=== PATIENT | male | born 1950 | race Caucasian/White ===

== ENCOUNTER 2018-03-03 12:06 | Inpatient (IN) | payer MEDICARE ==
--- NOTE | 2018-03-03 13:53 | C.PDOC ---
History Of Present Illness 67 y/o M c PMHx metastatic liver cancer on hospice care BIBEMS with scrotal edema x 1 week. Patient states the edema is causing discomfort due to the distention but denies any overt pain. Denies fever, dysuria, trauma, dyspnea. Patient states he is prescribed pain medication but has not taken any as he does not feel his level of pain warrants the medication. He is on lactulose and furosemide. Time Seen by Provider: 03/03/18 12:27 Chief Complaint (Nursing): Male Genitourinary Past Medical History Vital Signs: Last Vital Signs Temp 97.6 F 03/03/18 12:14 Pulse 86 03/03/18 12:14 Resp 16 03/03/18 12:14 BP 105/72 03/03/18 12:14 Pulse Ox 97 03/03/18 12:14 - Medical History PMH: Hepatitis (C, in remission?), HTN Family History: States: Unknown Family Hx - Social History Hx Tobacco Use: No Hx Alcohol Use: Yes Hx Substance Use: No - Immunization History Hx Tetanus Toxoid Vaccination: Yes Hx Influenza Vaccination: Yes Hx Pneumococcal Vaccination: Yes Review Of Systems Except As Marked, All Systems Reviewed And Found Negative. Constitutional: Negative for: Fever Cardiovascular: Negative for: Chest Pain Physical Exam - Physical Exam Additional Physical Exam Comments: Gen: Elderly, thin male Head: NC Eyes: PERRL ENT: MMM Neck: Supple Chest: No tenderness CV: Reg rate Lungs: No accessory muscle use Abd: Soft, NT : Scrotal edema without tenderness Skin: No rash Neuro: Alert Extremities: No extremity edema ED Course And Treatment - Laboratory Results Result Diagrams: 03/03/18 14:37 03/03/18 14:37 O2 Sat by Pulse Oximetry: 97 Medical Decision Making Medical Decision Making: US OTHER FINDINGS: Bilateral scrotal wall thickening. 0.3 x 3.3 x 0.3 cm right scrotal cyst. IMPRESSION: Bilateral small hydroceles. Bilateral scrotal wall thickening. 0.3 cm right scrotal cyst. Patient with inability to sit or walk about due to significant scrotal edema which is likely 3rd space fluid from metastatic liver cancer. Hospice care has informed patient that they will be unable to treat this scrotal edema. Dr. Nunn accepts patient to medical service for further treatment of scrotal edema for patient's quality of life. Disposition Discussed With : Jah Nunn Doctor Will See Patient In The: Hospital - Disposition Disposition: HOSPITALIZED Disposition Time: 16:09 Condition: FAIR - Clinical Impression Clinical Impression: Scrotal edema
[2018-03-03 14:47] LABS: BASO # 0.1 K/uL (0.0-0.2); BASO % 0.5 % (0.0-2.0); EOS # 0.1 K/uL (0.0-0.7); EOS % 1.1 % (0.0-4.0); LYMPH # 0.5 K/uL (1.0-4.3); LYMPH % 4.8 % (20.0-40.0); MEAN CELL VOLUME 100.4 fL (80.0-94.0); MEAN CORPUSCULAR HEMOGLOBIN 33.4 pg (27.0-31.0); MEAN CORPUSCULAR HGB CONC 33.3 g/dL (33.0-37.0); MONO # 1.4 K/uL (0.0-0.8); MONO % 13.1 % (0.0-10.0); NEUT # 8.6 K/uL (1.8-7.0); NEUT % 80.5 % (50.0-75.0); NRBC % 0.1 % (0.0-2.0); RBC 4.01 Mil/uL (4.40-5.90)
[2018-03-03 14:49] LABS: HEMOGLOBIN 13.4 g/dL (12.0-18.0); PLATELET COUNT 82 K/uL (130-400); WHITE BLOOD COUNT 10.7 K/uL (4.8-10.8)
[2018-03-03 15:22] LABS: ALB/GLOB RATIO 0.8 (1.0-2.1); ALBUMIN 2.9 g/dL (3.5-5.0)
[2018-03-03 15:26] LABS: LYMPHOCYTE 4 % (20-40); MONOCYTE 9 % (0-10); NEUTROPHIL 87 % (50-75); PLATELET ESTIMATE DECREASED (NORMAL); TOTAL CELLS COUNTED 100
[2018-03-03 15:27] LABS: ANISOCYTOSIS SLIGHT
[2018-03-03 15:28] LABS: BURR CELLS SLIGHT
--- NOTE | 2018-03-03 16:12 | US ---
Date of service: 03/03/2018 HISTORY: swollen testicles TECHNIQUE: Realtime sonography through the scrotum with color and doppler flow. COMPARISON: None Available. FINDINGS: RIGHT TESTICLE: Measures 3.2 x 1.7 x 2.1 cm. Homogeneous echotexture. Blood flow is demonstrated. RIGHT EPIDIDYMIS: Unremarkable. LEFT TESTICLE: Measures 2.9 x 1.5 x 2.1 cm. Homogeneous echotexture. Blood flow is demonstrated. LEFT EPIDIDYMIS: Unremarkable. HYDROCELE: Small bilateral hydroceles. VARICOCELE: None. OTHER FINDINGS: Bilateral scrotal wall thickening. 0.3 x 3.3 x 0.3 cm right scrotal cyst. IMPRESSION: Bilateral small hydroceles. Bilateral scrotal wall thickening. 0.3 cm right scrotal cyst.
[2018-03-03 19:09] LABS: URINE BACTERIA RARE (<OCC); URINE BILIRUBIN NEGATIVE (NEGATIVE); URINE BLOOD NEGATIVE (NEGATIVE); URINE CLARITY Clear (Clear); URINE COLOR Yellow (YELLOW); URINE GLUCOSE (UA) NORMAL (Normal); URINE LEUKOCYTE ESTERASE NEG Leu/uL (Negative); URINE PROTEIN NEGATIVE (NEGATIVE); URINE UROBILINOGEN NORMAL mg/dL (0.2-1.0)
--- NOTE | 2018-03-03 19:09 | CP.PCM.HP ---
History of Present Illness - History of Present Illness History of Present Illness: 67 years or male with metastatic liver cancer admitted with increasing scrotal swelling pain discomfort. Patient is under hospice care and patient was informed by the hospice care nurse that they would not be able to treat his scrotal problem. Patient has severe pain unable to sit walk or do any regular activities and has come to the hospital for focus treatment. His blood work revealed that patient is in renal failure with hyperkalemia. Patient has a history of hypertension. Patient has a catheter in the abdomen to drain ascites fluid. Present on Admission - Present on Admission Any Indicators Present on Admission: No Review of Systems - Constitutional Constitutional: Fatigue. absent: As Per HPI, Anorexia, Chills, Daytime Sleepiness, Excessive Sweating, Fever, Frequent Falls, Headache, Increased Appetite, Lethargy, Malaise, Night Sweats, Snoring, Sleep Apnea, Weight Gain, Weight Loss, Weakness, Other - EENT Eyes: absent: As Per HPI, Blind Spots, Blurred Vision, Change in Vision, Decreased Night Vision, Diplopia, Discharge, Dry Eye, Exophthalmos, Floaters, Irritation, Itchy Eyes, Loss of Peripheral Vision, Pain, Photophobia, Requires Corrective Lenses, Sees Flashes, Spots in Vision, Tunnel Vision, Other Visual Disturbances, Loss of Vision, Other Ears: absent: As Per HPI, Decreased Hearing, Ear Discharge, Ear Pain, Tinnitus, Abnormal Hearing, Disequilibrium, Dizziness, Other Nose/Mouth/Throat: absent: As Per HPI, Epistaxis, Nasal Congestion, Nasal Discharge, Nasal Obstruction, Nasal Trauma, Nose Pain, Post Nasal Drip, Sinus Pain, Sinus Pressure, Bleeding Gums, Change in Voice, Dental Pain, Dry Mouth, Dysphagia, Halitosis, Hoarsness, Lip Swelling, Mouth Lesions, Mouth Pain, O dynophagia, Sore Throat, Throat Swelling, Tongue Swelling, Facial Pain, Neck Pain, Neck Mass, Other - Cardiovascular Cardiovascular: absent: As Per HPI, Acrocyanosis, Chest Pain, Chest Pain at Rest, Chest Pain with Activity, Claudication, Diaphoresis, Dyspnea, Dyspnea on Exertion, Edema, Irregular Heart Rhythm, Pain Radiating to Arm/Neck/Jaw, Leg Edema, Leg Ulcers, Lightheadedness, Orthopnea, Palpitations, Paroxysmal Nocturnal Dyspnea, Pedal Edema, Radiating Pain, Rapid Heart Rate, Slow Heart Rate, Syncope, Other - Respiratory Respiratory: Dyspnea. absent: As Per HPI, Cough, Hemoptysis, Dyspnea on Exertion, Wheezing, Snoring, Stridor, Pain on Inspiration, Chest Congestion, Excessive Mucous Production, Change in Mucous Color, Pain with Coughing, Other - Gastrointestinal Gastrointestinal: Abdominal Pain. absent: As Per HPI, Belching, Bloating, Change in Bowel Habits, Change in Stool Character, Coffee Ground Emesis, Constipation, Cramping, Diarrhea, Dyspepsia, Dysphagia, Early Satiety, Excessive Flatus, Fecal Incontinence, Heartburn, Hematemesis, Hematochezia, Loose Stools, Melena, Nausea, Odynophagia, Temesmus, Vomiting, Other - Genitourinary Genitourinary: absent: As Per HPI, Change in Urinary Stream, Difficulty Urinating, Dysuria, Flank Pain, Hematuria, Pyuria, Nocturia, Urinary Incontinence, Urinary Frequency, Urinary Hesitance, Urinary Urgency, Voiding Freq/Small Amts, Freq UTI, Hx Renal/Bladder Calculi, Hx /Renal Surgery, Bladder Distension, Other - Reproductive: Male Reproductive:Male: Other (SCROTAL SWELLING) - Musculoskeletal Musculoskeletal: Muscle Weakness. absent: As Per HPI, Abnormal Gait, Arthralgias, Atrophy, Back Pain, Deformity, Joint Swelling, Limited Range of Motion, Loss of Height, Muscle Cramps, Myalgias, Neck Pain, Numbness, Radiating Pain into Limb, Stiffness, Tingling, Other Past Patient History - Infectious Disease Hx of Infectious Diseases: None - Past Social History Smoking Status: Never Smoked - CARDIAC Hx Hypertension: Yes - HEMATOLOGICAL/ONCOLOGICAL Hx Cancer: Yes (Liver CA with METS TO LUNGS AND KIDNEY- HOSPICE PATIENT) Other/Comment: PT REVOKED HOSPICE TODAY WITH ED VISIT - PSYCHIATRIC Hx Substance Use: No - SURGICAL HISTORY Hx Surgeries: Yes Hx Musculoskeletal Surgery: Yes (L shoulder rotator cuff) Meds Allergies/Adverse Reactions: Allergies Allergy/AdvReac Type Severity Reaction Status Date / Time No Known Allergies Allergy Verified 05/07/15 12:47 Physical Exam - Constitutional Appears: Chronically Ill - Head Exam Head Exam: ATRAUMATIC, NORMAL INSPECTION, NORMOCEPHALIC - Eye Exam Eye Exam: EOMI, Normal appearance, PERRL - ENT Exam ENT Exam: Mucous Membranes Moist, Normal Exam - Neck Exam Neck exam: Positive for: Normal Inspection - Respiratory Exam Respiratory Exam: Clear to Auscultation Bilateral, NORMAL BREATHING PATTERN - Cardiovascular Exam Cardiovascular Exam: REGULAR RHYTHM - GI/Abdominal Exam GI & Abdominal Exam: Distended, Tenderness - Rectal Exam Rectal Exam: Deferred - Exam Exam: Scrotal Swelling, Testicular Tenderness - Extremities Exam Extremities exam: Positive for: normal inspection - Neurological Exam Neurological exam: Abnormal Gait, CN II-XII Intact, Oriented x3 Results - Vital Signs Recent Vital Signs: Last Vital Signs Temp 97.9 F 03/03/18 18:33 Pulse 86 03/03/18 17:49 Resp 24 03/03/18 17:49 BP 103/63 03/03/18 17:49 Pulse Ox 97 03/03/18 18:22 - Labs Result Diagrams: 03/03/18 14:37 03/03/18 14:37 Labs: Laboratory Results - last 24 hr 03/03/18 03/03/18 14:37 14:37 WBC 10.7 D RBC 4.01 L Hgb 13.4 D Hct 40.3 MCV 100.4 H MCH 33.4 H MCHC 33.3 RDW 17.0 H Plt Count 82 L D MPV 9.0 Neut % (Auto) 80.5 H Lymph % (Auto) 4.8 L [place] % (Auto) 13.1 H Eos % (Auto) 1.1 Baso % (Auto) 0.5 Neut # (Auto) 8.6 H Lymph # (Auto) 0.5 L [place] # (Auto) 1.4 H Eos # (Auto) 0.1 Baso # (Auto) 0.1 Neutrophils % (Manual) 87 H Lymphocytes % (Manual) 4 L Monocytes % (Manual) 9 Platelet Estimate Decreased L Anisocytosis (manual) Slight Macrocytosis (manual) Slight Mari[place] Cells Slight Sodium 128 L Potassium 5.6 H Chloride 100 Carbon Dioxide 14 L Anion Gap 20 BUN 123 H* D Creatinine 5.1 H Est GFR ( Amer) 14 Est GFR (Non-Af Amer) 11 Random Glucose 125 H Calcium 9.0 Total Bilirubin 4.6 H AST 306 H ALT 259 H D Alkaline Phosphatase 205 H Total Protein 6.6 Albumin 2.9 L Globulin 3.8 Albumin/Globulin Ratio 0.8 L Assessment & Plan (1) Liver cancer, primary, with metastasis from liver to other site Status: Chronic (2) Renal failure (ARF), acute on chronic Status: Acute (3) Hyperkalemia Status: Acute (4) Scrotal edema Status: Acute
[2018-03-03] MEDS ORDERED: Sod Polystyrene Sulf 15 gm/60 ml Susp PO ONE (19:30)
[2018-03-04 07:10] LABS: ALB/GLOB RATIO 0.8 (1.0-2.1); ALBUMIN 2.9 g/dL (3.5-5.0); BILIRUBIN,DIRECT 2.8 mg/dL (0.0-0.4)
[2018-03-04 08:18] LABS: BASO # 0.1 K/uL (0.0-0.2); BASO % 0.6 % (0.0-2.0); EOS # 0.2 K/uL (0.0-0.7); EOS % 2.3 % (0.0-4.0); HEMOGLOBIN 12.3 g/dL (12.0-18.0); LYMPH # 0.7 K/uL (1.0-4.3); LYMPH % 6.6 % (20.0-40.0); MEAN CELL VOLUME 99.5 fL (80.0-94.0); MEAN CORPUSCULAR HEMOGLOBIN 34.3 pg (27.0-31.0); MEAN CORPUSCULAR HGB CONC 34.5 g/dL (33.0-37.0); MEAN PLATELET VOLUME 8.8 fL (7.2-11.7); MONO # 1.4 K/uL (0.0-0.8); MONO % 13.5 % (0.0-10.0); NEUT # 8.2 K/uL (1.8-7.0); PLATELET COUNT 83 K/uL (130-400); RBC 3.58 Mil/uL (4.40-5.90); WHITE BLOOD COUNT 10.7 K/uL (4.8-10.8)
[2018-03-04 08:47] LABS: ANISOCYTOSIS SLIGHT; EOSINOPHIL 4 % (0-4); LYMPHOCYTE 2 % (20-40); MONOCYTE 11 % (0-10); NEUTROPHIL 83 % (50-75); PLATELET ESTIMATE DECREASED (NORMAL); TOTAL CELLS COUNTED 100
[2018-03-04 08:48] LABS: BURR CELLS SLIGHT
[2018-03-04 08:49] LABS: POLYCHROMIC SLIGHT
[2018-03-04] MEDS ORDERED: Sodium Bicarbonate (8.4%) 50 Meq Syringe IVP ONE (09:15)
[2018-03-04 09:47] LABS: ALB/GLOB RATIO 0.8 (1.0-2.1); ALBUMIN 2.5 g/dL (3.5-5.0); CALCIUM 8.7 mg/dl (8.6-10.4)
[2018-03-04] MEDS: Dextrose 5%/0.9% NS 1,000 ML IV SCH ×2 (10:59→21:16)
[2018-03-04] MEDS ORDERED: Sodium Bicarbonate (8.4%) 50 Meq Syringe ONE ×2 (11:30→11:33)
[2018-03-04] MEDS: Oxycodone/Acetaminophen 5/325 mg Tab PO PRN (12:17)
--- NOTE | 2018-03-04 14:19 | CP.PCM.PN ---
Subjective - Date & Time of Evaluation Date of Evaluation: 03/04/18 Time of Evaluation: 14:16 - Subjective Subjective: CHIEF COMPLAINTS TODAY : Patient has pain all over the system. Still has a scrotal swelling Patient in renal failure not much improvement since yesterday ROS. HEENT : N. Resp : No cough, wheezing ,pleuritic CP ,or hemoptysis Cardio : No anginal CP, PND, orthopnea, palpitation GI : No n/v ,diarrhea or GI bleeding . 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 Musculoskel : No joint swelling , Derm : No rash Psych : Normal affect. Ext : No swelling ,calf pain PE. Pt. is alert awake in no distress. V.S As noted in the chart Head ,ear nose,throat and eyes : Normal. Neck : Supple with normal carotids. Lungs: Clear air entry. Heart : S1 & S2 normal with S4. No murmur. Abd : Soft non tender with normal bowel sounds. Drainage catheter. Scrotal swelling Neuro : Moves all ext. with no localized deficit. Ext : No edema with intact pulses.Non tender calves Derm : No rashes or decubitus ulcer. LABS/RADIOLOGY: ASSESSMENT/PLAN : Continue pain management and fluids. Objective - Vital Signs/Intake and Output Vital Signs (last 24 hours): Temp Pulse Resp BP Pulse Ox 97.5 F L 85 20 104/69 98 03/04/18 07:58 03/04/18 07:58 03/04/18 07:58 03/04/18 07:58 03/04/18 08:59 - Medications Medications: Current Medications Heparin Sodium (Porcine) (Heparin) 5,000 units SC Q12 [facility] Last Admin: 03/03/18 22:28 Dose: 5,000 units Dextrose/Sodium Chloride (Dextrose 5%/0.9% Ns 1000 Ml) 1,000 mls @ 100 mls/hr IV .Q10H MINNIE Stop: 03/05/18 10:01 Last Admin: 03/04/18 10:59 Dose: 100 mls/hr Oxycodone/Acetaminophen (Percocet 5/325 Mg Tab) 1 tab PO Q6H PRN PRN Reason: Pain, moderate (4-7) Stop: 03/06/18 20:12 Last Admin: 03/04/18 12:17 Dose: 1 tab - Labs Labs: 03/04/18 08:13 12/05/18 08:13 Assessment and Plan (1) Liver cancer, primary, with metastasis from liver to other site Status: Chronic (2) Renal failure (ARF), acute on chronic Status: Acute (3) Hyperkalemia Status: Acute (4) Scrotal edema Status: Acute
--- NOTE | 2018-03-04 16:07 | CP.PCM.CON ---
History of Present Illness - History of Present Illness History of Present Illness: Nephrology Consultation Note: Assessment: critical Acute Kidney Injury (N17.9) ? pre-renal, hepato-renal Hyperkalemia HAGMA, hyponatremia thrombocytopenia metastatic liver CA, on hospice, ascites Plan pt with end stage cancer and on hospice hence he is not a candidate for renal replacement therapy Maintain hemodynamics stable. Avoid hypotension. Patient not on ACEI/ARB due to recent DOMO Monitor Input/Output, daily weights and renal function with basic metabolic panel will start IVF. straight cath once s/p kayexylate better. ordered for IV bicarb palliative care follow up Check urine sodium and Cr Dose meds/antibiotics for reduced GFR. Avoid fleets enema/magnesium based laxatives. Avoid nephrotoxins/NSAIDs/ iodinated contrast (unless needed emergently) Glycemic control Further work up/management as per primary team Thanks for allowing me to participate in care of your patient. Will follow patient with you. Please call if any Qs. Dr Lloyd Valadez Office: [phone] Chief Complaint; scrotal swelling Reason for consult: Acute Kidney Injury HPI: Pt is a 67 M with hx of metastatic liver CA, on hospice, ascites presented with complaints of scrotal swelling. renal consult for DOMO. pt reports decreased appetite at home and feels recently 2 bottle for fluid were removed from his a bdomen which made him worse. Denies OTC/herbal meds or NSAIDs No recent iodinated contrast exposure. Noted obvious episodes of low BP. ROS: Cardiovascular: No chest pain. Pulmonary: No shortness of breath Gastrointestinal: denies abdominal pain No nausea. No vomiting. c/p distension Genitourinary: No pain while urinating. Denies blood in urine. All other negative except as mentioned in HPI Physical Examination: General Appearance: in no acute respiratory distress, co-operative . cachexic, ill appearing Vitals reviewed and noted as below Head; Atraumatic, normocephalic ENT: no ulcers no thrush. Tongue is midline. Oropharynx: no rash or ulcers. EYES: Pupils are equal, round and reactive to light accommodation. Eye muscles and extraocular movement intact. Sclera is icteric. Neck; supple no lymphadenopathy, no thyromegaly or bruit Lungs: Normal respiratory rate/effort. Breath sounds bilateral equal and clear anteriorly Heart: Normal rate. s1s2 normal. No rub or gallop. Extremities: no edema. No varicose veins Neurological: Patient is alert, awake and oriented to person, place and time. No focal deficit. Strength bilateral appropriate and equal Skin: Warm and dry. Normal turgor. No rash. Palpitation: Normal elasticity for age Abdomen: Abdomen is soft. Bowel sounds +. There is no abdominal tenderness, no guarding/rigidity no organomegaly. grossly distended with ascites. RLQ catheter + Psych: normal insight and normal affect/mood MSK: no joint tenderness or swelling. Digits and nails normal, no deformity : kidney or bladder not palpable but limited exam Labs/imaging reviewed. Past medical history, past surgical history, family history, social history, allergy reviewed and noted as below Family hx: no hx of CKD. Rest non-contributory Past Patient History - Infectious Disease Hx of Infectious Diseases: None - Past Social History Smoking Status: Never Smoked - CARDIAC Hx Hypertension: Yes - HEMATOLOGICAL/ONCOLOGICAL Hx Cancer: Yes (Liver CA with METS TO LUNGS AND KIDNEY- HOSPICE PATIENT) Other/Comment: PT REVOKED HOSPICE TODAY WITH ED VISIT - PSYCHIATRIC Hx Substance Use: No - SURGICAL HISTORY Hx Surgeries: Yes Hx Musculoskeletal Surgery: Yes (L shoulder rotator cuff) Meds Allergies/Adverse Reactions: Allergies Allergy/AdvReac Type Severity Reaction Status Date / Time No Known Allergies Allergy Verified 05/07/15 12:47 - Medications Medications: Current Medications Dextrose/Sodium Chloride (Dextrose 5%/0.9% Ns 1000 Ml) 1,000 mls @ 100 mls/hr IV .Q10H MINNIE Stop: 03/05/18 10:01 Last Admin: 03/04/18 10:59 Dose: 100 mls/hr Oxycodone/Acetaminophen (Percocet 5/325 Mg Tab) 1 tab PO Q6H PRN PRN Reason: Pain, moderate (4-7) Stop: 03/06/18 20:12 Last Admin: 03/04/18 12:17 Dose: 1 tab Results - Vital Signs Recent Vital Signs: Last Vital Signs Temp 97.5 F L 03/04/18 07:58 Pulse 85 03/04/18 07:58 Resp 20 03/04/18 07:58 BP 104/69 03/04/18 07:58 Pulse Ox 98 03/04/18 08:59 - Labs Result Diagrams: 03/04/18 08:13 03/04/18 08:13 Labs: Laboratory Results - last 24 hr 03/03/18 03/04/18 03/04/18 18:39 06:41 08:13 WBC 10.7 RBC 3.58 L Hgb 12.3 Hct 35.6 MCV 99.5 H MCH 34.3 H MCHC 34.5 RDW 17.0 H Plt Count 83 L MPV 8.8 Neut % (Auto) 77.0 H Lymph % (Auto) 6.6 L [place] % (Auto) 13.5 H Eos % (Auto) 2.3 Baso % (Auto) 0.6 Neut # (Auto) 8.2 H Lymph # (Auto) 0.7 L [place] # (Auto) 1.4 H Eos # (Auto) 0.2 Baso # (Auto) 0.1 Neutrophils % (Manual) 83 H Lymphocytes % (Manual) 2 L Monocytes % (Manual) 11 H Eosinophils % (Manual) 4 Platelet Estimate Decreased L Polychromasia Slight Anisocytosis (manual) Slight Marii Cells Slight Sodium 128 L Potassium 6.1 H Chloride 102 Carbon Dioxide 12 L Anion Gap 20 BUN 129 H* Creatinine 4.3 H Est GFR ( Amer) 17 Est GFR (Non-Af Amer) 14 Random Glucose 104 Calcium 8.0 L Total Bilirubin 4.6 H Direct Bilirubin 2.8 H AST 220 H D ALT 186 H D Alkaline Phosphatase 167 H Total Protein 6.7 Albumin 2.9 L Globulin 3.8 Albumin/Globulin Ratio 0.8 L Urine Color Yellow Urine Clarity Clear Urine pH 5.0 Ur Specific [place] 1.013 Urine Protein Negative Urine Glucose (UA) Normal Urine Ketones Negative Urine Blood Negative Urine Nitrate Negative Urine Bilirubin Negative Urine Urobilinogen Normal Ur Leukocyte Esterase Neg Urine WBC (Auto) < 1 Urine RBC (Auto) < 1 Urine Bacteria Rare 03/04/18 08:13 WBC RBC Hgb Hct MCV MCH MCHC RDW Plt Count MPV Neut % (Auto) Lymph % (Auto) [place] % (Auto) Eos % (Auto) Baso % (Auto) Neut # (Auto) Lymph # (Auto) [place] # (Auto) Eos # (Auto) Baso # (Auto) Neutrophils % (Manual) Lymphocytes % (Manual) Monocytes % (Manual) Eosinophils % (Manual) Platelet Estimate Polychromasia Anisocytosis (manual) [place] Cells Sodium 129 L Potassium 4.9 Chloride 103 Carbon Dioxide 14 L Anion Gap 17 BUN 126 H* Creatinine 4.6 H Est GFR ( Amer) 15 Est GFR (Non-Af Amer) 13 Random Glucose 104 Calcium 8.7 Total Bilirubin 3.9 H Direct Bilirubin AST 194 H ALT 201 H Alkaline Phosphatase 198 H Total Protein 5.9 L Albumin 2.5 L Globulin 3.3 Albumin/Globulin Ratio 0.8 L Urine Color Urine Clarity Urine pH Ur Specific [place] Urine Protein Urine Glucose (UA) Urine Ketones Urine Blood Urine Nitrate Urine Bilirubin Urine Urobilinogen Ur Leukocyte Esterase Urine WBC (Auto) Urine RBC (Auto) Urine Bacteria
[2018-03-05] MEDS: Dextrose 5%/0.9% NS 1,000 ML IV SCH (07:58)
[2018-03-05 09:16] LABS: BASO # 0.1 K/uL (0.0-0.2); BASO % 0.8 % (0.0-2.0); EOS # 0.3 K/uL (0.0-0.7); EOS % 3.6 % (0.0-4.0); HEMOGLOBIN 12.3 g/dL (12.0-18.0); LYMPH # 0.6 K/uL (1.0-4.3); LYMPH % 7.4 % (20.0-40.0); MEAN CELL VOLUME 98.7 fL (80.0-94.0); MEAN CORPUSCULAR HEMOGLOBIN 33.7 pg (27.0-31.0); MEAN CORPUSCULAR HGB CONC 34.2 g/dL (33.0-37.0); MONO # 1.1 K/uL (0.0-0.8); NEUT # 6.7 K/uL (1.8-7.0); NEUT % 76.2 % (50.0-75.0); NRBC % 0.1 % (0.0-2.0); PLATELET COUNT 82 K/uL (130-400); RBC 3.65 Mil/uL (4.40-5.90); RED CELL DISTRIBUTION WIDTH 17.2 % (11.5-14.5); WHITE BLOOD COUNT 8.8 K/uL (4.8-10.8)
[2018-03-05] MEDS ORDERED: Pneumococcal 23-Valent Vaccine IM ONE (10:00)
[2018-03-05 11:07] LABS: ALB/GLOB RATIO 0.8 (1.0-2.1); ALBUMIN 2.5 g/dL (3.5-5.0); CALCIUM 8.5 mg/dl (8.6-10.4)
[2018-03-05 11:14] LABS: ANISOCYTOSIS SLIGHT; EOSINOPHIL 2 % (0-4); LYMPHOCYTE 2 % (20-40); MONOCYTE 8 % (0-10); NEUTROPHIL 88 % (50-75); PLATELET ESTIMATE DECREASED (NORMAL); TOTAL CELLS COUNTED 100
[2018-03-05 11:15] LABS: BURR CELLS SLIGHT
[2018-03-05] MEDS: Albumin Human 25% (12.5 gm/50 ml) IV SCH ×2 (12:48→17:23)
--- NOTE | 2018-03-05 13:53 | CP.PCM.PN ---
Subjective - Date & Time of Evaluation Date of Evaluation: 03/05/18 Time of Evaluation: 13:52 - Subjective Subjective: CHIEF COMPLAINTS TODAY : Patient has pain all over the system. Still has a mild scrotal swelling Patient in renal failure not much improvement since yesterday ROS. HEENT : N. Resp : No cough, wheezing ,pleuritic CP ,or hemoptysis Cardio : No anginal CP, PND, orthopnea, palpitation GI : No n/v ,diarrhea or GI bleeding . 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 Musculoskel : No joint swelling , Derm : No rash Psych : Normal affect. Ext : No swelling ,calf pain PE. Pt. is alert awake in no distress. V.S As noted in the chart Head ,ear nose,throat and eyes : Normal. Neck : Supple with normal carotids. Lungs: Clear air entry. Heart : S1 & S2 normal with S4. No murmur. Abd : Soft non tender with normal bowel sounds. Drainage catheter. Scrotal swelling Neuro : Moves all ext. with no localized deficit. Ext : No edema with intact pulses.Non tender calves Derm : No rashes or decubitus ulcer. LABS/RADIOLOGY: ASSESSMENT/PLAN : Continue pain management and fluids. Objective - Vital Signs/Intake and Output Vital Signs (last 24 hours): Temp Pulse Resp BP Pulse Ox 98.8 F 86 20 103/64 98 03/05/18 08:11 03/05/18 08:11 03/05/18 08:11 03/05/18 08:11 03/05/18 08:35 Intake and Output: 03/05/18 03/05/18 11:59 23:59 Output Total 300 Balance -300 - Medications Medications: Current Medications Albumin Human (Albumin Human 25% (12.5 Gm/50 Ml)) 25 gm IV Q6 MINNIE Stop: 03/06/18 06:01 Last Admin: 03/05/18 12:48 Dose: 25 gm Midodrine (Proamatine) 10 mg PO TID [facility] Octreotide Acetate (Sandostatin) 200 mcg SC Q8 [facility] Oxycodone/Acetaminophen (Percocet 5/325 Mg Tab) 1 tab PO Q6H PRN PRN Reason: Pain, moderate (4-7) Stop: 03/06/18 20:12 Last Admin: 03/04/18 12:17 Dose: 1 tab - Labs Labs: 03/05/18 09:05 03/05/18 09:05 Assessment and Plan (1) Liver cancer, primary, with metastasis from liver to other site Status: Chronic (2) Renal failure (ARF), acute on chronic Status: Acute (3) Hyperkalemia Status: Acute (4) Scrotal edema Status: Acute
--- NOTE | 2018-03-05 15:01 | CP.PCM.PN ---
Subjective - Date & Time of Evaluation Date of Evaluation: 03/05/18 Time of Evaluation: 15:00 - Subjective Subjective: Nephrology Consultation Note: Assessment: critical Acute Kidney Injury (N17.9) ? pre-renal, hepato-renal Hyperkalemia HAGMA, hyponatremia thrombocytopenia metastatic liver CA, on hospice, ascites Plan pt with end stage cancer and on hospice hence he is not a candidate for renal replacement therapy Maintain hemodynamics stable. Avoid hypotension. Patient not on ACEI/ARB due to recent DOMO Monitor Input/Output, daily weights and renal function with basic metabolic panel start IV albumin, octreotide and midodrine palliative care follow up Dose meds/antibiotics for reduced GFR. Avoid fleets enema/magnesium based laxatives. Avoid nephrotoxins/NSAIDs/ iodinated contrast (unless needed emergently) Glycemic control Further work up/management as per primary team Thanks for allowing me to participate in care of your patient. Will follow patient with you. Please call if any Qs. had d/w team Dr Lloyd Valadez Office: [phone] Chief Complaint; scrotal swelling Reason for consult: Acute Kidney Injury HPI: Pt is a 67 M with hx of metastatic liver CA, on hospice, ascites presented with complaints of scrotal swelling. renal consult for DOMO. pt reports decreased appetite at home and feels recently 2 bottle for fluid were removed from his abdomen which made him worse. Denies OTC/herbal meds or NSAIDs No recent iodinated contrast exposure. Noted obvious episodes of low BP. ROS: Cardiovascular: No chest pain. Pulmonary: No shortness of breath Gastrointestinal: denies abdominal pain No nausea. No vomiting. c/o distension Genitourinary: No pain while urinating. Denies blood in urine. All other negative except as mentioned in HPI Physical Examination: General Appearance: in no acute respiratory distress, co-operative . cachexic, ill appearing Vitals reviewed and noted as below Head; Atraumatic, normocephalic ENT: no ulcers no thrush. Tongue is midline. Oropharynx: no rash or ulcers. EYES: Pupils are equal, round and reactive to light accommodation. Eye muscles and extraocular movement intact. Sclera is icteric. Neck; supple no lymphadenopathy, no thyromegaly or bruit Lungs: Normal respiratory rate/effort. Breath sounds bilateral equal and clear anteriorly Heart: Normal rate. s1s2 normal. No rub or gallop. Extremities: no edema. No varicose veins Neurological: Patient is alert, awake and oriented to person, place and time. No focal deficit. Strength bilateral appropriate and equal Skin: Warm and dry. Normal turgor. No rash. Palpitation: Normal elasticity for age Abdomen: Abdomen is soft. Bowel sounds +. There is no abdominal tenderness, no guarding/rigidity no organomegaly. grossly distended with ascites. RLQ catheter + Psych: normal insight and normal affect/mood MSK: no joint tenderness or swelling. Digits and nails normal, no deformity : kidney or bladder not palpable but limited exam Labs/imaging reviewed. Past medical history, past surgical history, family history, social history, allergy reviewed and noted as below Family hx: no hx of CKD. Rest non-contributory Objective - Vital Signs/Intake and Output Vital Signs (last 24 hours): Temp Pulse Resp BP Pulse Ox 98.8 F 86 20 103/64 98 03/05/18 08:11 03/05/18 08:11 03/05/18 08:11 03/05/18 08:11 03/05/18 08:35 Intake and Output: 03/05/18 03/05/18 06:59 18:59 Intake Total 150 Output Total 1050 Balance -900 - Medications Medications: Current Medications Albumin Human (Albumin Human 25% (12.5 Gm/50 Ml)) 25 gm IV Q6 [facility] Stop: 03/06/18 06:01 Last Admin: 03/05/18 12:48 Dose: 25 gm Midodrine (Proamatine) 10 mg PO TID [facility] Last Admin: 03/05/18 14:03 Dose: 10 mg Octreotide Acetate (Sandostatin) 200 mcg SC Q8 [facility] Last Admin: 03/05/18 14:03 Dose: 200 mcg Oxycodone/Acetaminophen (Percocet 5/325 Mg Tab) 1 tab PO Q6H PRN PRN Reason: Pain, moderate (4-7) Stop: 03/06/18 20:12 Last Admin: 03/04/18 12:17 Dose: 1 tab - Labs Labs: 03/05/18 09:05 03/05/18 09:05
[2018-03-06] MEDS: Albumin Human 25% (12.5 gm/50 ml) IV SCH ×2 (00:46→05:54)
--- NOTE | 2018-03-06 06:09 | CP.PCM.PCO ---
Physician Communication Note - Physician Communication Note Physician Communication Note: please see above note
[2018-03-06 08:09] LABS: BASO % 0.6 % (0.0-2.0); EOS # 0.3 K/uL (0.0-0.7); EOS % 4.2 % (0.0-4.0); HEMOGLOBIN 10.9 g/dL (12.0-18.0); LYMPH # 0.5 K/uL (1.0-4.3); LYMPH % 7.8 % (20.0-40.0); MEAN CELL VOLUME 98.9 fL (80.0-94.0); MEAN CORPUSCULAR HEMOGLOBIN 33.7 pg (27.0-31.0); MEAN CORPUSCULAR HGB CONC 34.1 g/dL (33.0-37.0); MONO % 15.9 % (0.0-10.0); NEUT # 4.4 K/uL (1.8-7.0); NEUT % 71.5 % (50.0-75.0); NRBC % 0.1 % (0.0-2.0); PLATELET COUNT 70 K/uL (130-400); RBC 3.22 Mil/uL (4.40-5.90); RED CELL DISTRIBUTION WIDTH 16.7 % (11.5-14.5); WHITE BLOOD COUNT 6.1 K/uL (4.8-10.8)
[2018-03-06 08:25] LABS: ALB/GLOB RATIO 1.2 (1.0-2.1); ALBUMIN 3.1 g/dL (3.5-5.0); CALCIUM 8.6 mg/dl (8.6-10.4)
[2018-03-06 09:03] LABS: ANISOCYTOSIS SLIGHT; LYMPHOCYTE 3 % (20-40); MONOCYTE 7 % (0-10); NEUTROPHIL 90 % (50-75); PLATELET ESTIMATE DECREASED (NORMAL); TOTAL CELLS COUNTED 100
--- NOTE | 2018-03-06 10:38 | CP.PCM.CON ---
History of Present Illness - History of Present Illness History of Present Illness: Palliative consult requested by Doctor Valadez for assistance with symptoms management and promotion of quality of life Patient is a 67 yo male admitted from home with scrotal edema X 1 week. Patient was under Hospice Care at the time of admission. Hospice stated not being able to control patient's symptoms at home and advised admission, as per ED report. Patient did admit being prescribed pain meds at home, but did not take them as pain was not that strong; it was more like a discomfort. The hydrocele are seen as a 3rd spacing of fluid from liver cancer. On admission, the testicular US was significant of B/L hydrocele with no blood flow restrictions. Patient placed on Lasix and Lactulose. Of concern is also abnormal blood work; BUN 126, Music Mixer 4.3. Renal consult called and no renal replacement Tx was advised due to terminal prognosis of this patient and at the light of quality of life. Patient is being treated symptomatically. PMH: metastatic liver cancer, hep C, HTN Soc. Hx: , lives at home Fam. Hx: Unobtainable from patient at this time Review of Systems - Review of Systems All systems: reviewed and no additional remarkable complaints except Review of Systems: ROS unobtainable from the patient due to confusion. ROS obtained from nursing. Per nursing, patient is in and out of confusion Past Patient History - Infectious Disease Hx of Infectious Diseases: None - Past Social History Smoking Status: Never Smoked - CARDIAC Hx Hypertension: Yes - HEMATOLOGICAL/ONCOLOGICAL Hx Cancer: Yes (Liver CA with METS TO LUNGS AND KIDNEY- HOSPICE PATIENT) Other/Comment: PT REVOKED HOSPICE TODAY WITH ED VISIT - PSYCHIATRIC Hx Substance Use: No - SURGICAL HISTORY Hx Surgeries: Yes Hx Musculoskeletal Surgery: Yes (L shoulder rotator cuff) Meds Allergies/Adverse Reactions: Allergies Allergy/AdvReac Type Severity Reaction Status Date / Time No Known Allergies Allergy Verified 05/07/15 12:47 - Medications Medications: Current Medications Midodrine (Proamatine) 10 mg PO TID [facility] Last Admin: 03/06/18 09:47 Dose: 10 mg Octreotide Acetate (Sandostatin) 200 mcg SC Q8 [facility] Last Admin: 03/06/18 06:29 Dose: 200 mcg Oxycodone/Acetaminophen (Percocet 5/325 Mg Tab) 1 tab PO Q6H PRN PRN Reason: Pain, moderate (4-7) Stop: 03/06/18 20:12 Last Admin: 03/04/18 12:17 Dose: 1 tab Physical Exam - Constitutional Appears: Chronically Ill - Head Exam Head Exam: ATRAUMATIC, NORMAL INSPECTION, NORMOCEPHALIC - Eye Exam Eye Exam: EOMI, Normal appearance, PERRL Pupil Exam: NORMAL ACCOMODATION, PERRL - ENT Exam ENT Exam: Mucous Membranes Moist, Normal Exam - Neck Exam Neck exam: Positive for: Normal Inspection - Respiratory Exam Respiratory Exam: Decreased Breath Sounds, NORMAL BREATHING PATTERN - Cardiovascular Exam Cardiovascular Exam: Tachycardia - GI/Abdominal Exam GI & Abdominal Exam: Distended, Firm, Guarding Additional comments: Pleurex cath in place - Rectal Exam Rectal Exam: Deferred - Exam Exam: Scrotal Swelling - Extremities Exam Extremities exam: Positive for: pedal edema - Back Exam Back exam: NORMAL INSPECTION - Neurological Exam Neurological exam: Alert, Altered - Psychiatric Exam Psychiatric exam: Agitated, Anxious - Skin Skin Exam: Dry, Intact Results - Vital Signs Recent Vital Signs: Last Vital Signs Temp 98.8 F 03/06/18 08:15 Pulse 84 03/06/18 08:15 Resp 20 03/06/18 08:15 BP 126/73 03/06/18 08:15 Pulse Ox 95 03/06/18 08:16 - Labs Result Diagrams: 03/06/18 07:55 03/06/18 07:55 Labs: Laboratory Results - last 24 hr 03/05/18 03/05/18 03/06/18 09:05 09:05 07:55 WBC 6.1 RBC 3.22 L Hgb 10.9 L Hct 31.9 L MCV 98.9 H MCH 33.7 H MCHC 34.1 RDW 16.7 H Plt Count 70 L MPV 9.0 Neut % (Auto) 71.5 Lymph % (Auto) 7.8 L Valencia % (Auto) 15.9 H Eos % (Auto) 4.2 H Baso % (Auto) 0.6 Neut # (Auto) 4.4 Lymph # (Auto) 0.5 L Valencia # (Auto) 1.0 H Eos # (Auto) 0.3 Baso # (Auto) 0.0 Neutrophils % (Manual) 88 H 90 H Lymphocytes % (Manual) 2 L 3 L Monocytes % (Manual) 8 7 Eosinophils % (Manual) 2 Platelet Estimate Decreased L Decreased L Anisocytosis (manual) Slight Slight Marii Cells Slight Sodium 130 L Potassium 5.0 Chloride 101 Carbon Dioxide 18 L Anion Gap 16 BUN 122 H* Creatinine 4.5 H Est GFR ( Amer) 16 Est GFR (Non-Af Amer) 13 Random Glucose 138 H Calcium 8.5 L Phosphorus 6.8 H Magnesium 2.6 H Total Bilirubin 3.7 H AST 173 H ALT 181 H Alkaline Phosphatase 212 H Total Protein 5.9 L Albumin 2.5 L Globulin 3.4 Albumin/Globulin Ratio 0.8 L 03/06/18 07:55 WBC RBC Hgb Hct MCV MCH MCHC RDW Plt Count MPV Neut % (Auto) Lymph % (Auto) Valencia % (Auto) Eos % (Auto) Baso % (Auto) Neut # (Auto) Lymph # (Auto) Valencia # (Auto) Eos # (Auto) Baso # (Auto) Neutrophils % (Manual) Lymphocytes % (Manual) Monocytes % (Manual) Eosinophils % (Manual) Platelet Estimate Anisocytosis (manual) Marii Cells Sodium 131 L Potassium 4.4 Chloride 100 Carbon Dioxide 14 L Anion Gap 22 H BUN 126 H* Creatinine 4.3 H Est GFR ( Amer) 17 Est GFR (Non-Af Amer) 14 Random Glucose 106 Calcium 8.6 Phosphorus Magnesium Total Bilirubin 3.7 H AST 115 H D ALT 134 H D Alkaline Phosphatase 137 H D Total Protein 5.8 L Albumin 3.1 L D Globulin 2.6 Albumin/Globulin Ratio 1.2 Assessment & Plan - Assessment and Plan (Free Text) Assessment: Palliative consult PROXY on chart, indicating patient's wishes for comfort care only I reviewed Medical records, all diagnostic studies, examined patient in the bed Patient is alert, but confused. Patient did not make eye contacts this morning nor was verbal. When I saw patient yesterday, to assist nurses with Pleurax cath draining, patient was very alert and talkative. Patient is restless in bed, does not seem able to assume comfortable position. Breath sounds are diminished. RR regular. Abdomen distended, rigid and guarded. Pleurx Cath at RUQ. Yesterday 550 cc of ascites was drained out. Color was beck and vaishali. Scrotum is today mildly swollen. Patient has difficulties passing urine. [facility] cath X 1 with 300 cc of urine out.Patient was not able to discuss his symptoms due to confusion. Patient is able to move all 4 extremities. WBC 6.1, Hb 10.9, Na 131, BUN 126, Music Mixer 4.3, T. [place] 3.7 BP 126/73, HR 84, O2Sat 96 % NC Impression * Metastatic liver disease * On home hospice * Intermittent confusion related to primary diagnosis * Scrotal edema * Dysuria * Distended abdomen, ascites * Agitation and confusion Suggestions * Promote safety * Would drain Pleurex cath Q 24 hr for increased comfort * Would consider insertion of Singleton cath and discharge home with one to promote urination. In this dying patient benefices from regular urination outweighs the risk of infection * Would discharge home to continue hospice care with Lasix and Lactulose prescriptions Thank you for allowing me to be a part of your team.
[2018-03-06] MEDS: Oxycodone/Acetaminophen 5/325 mg Tab PO PRN (12:09)
--- NOTE | 2018-03-06 13:57 | CP.PCM.PN ---
Subjective - Date & Time of Evaluation Date of Evaluation: 03/06/18 Time of Evaluation: 13:55 - Subjective Subjective: After discussing with the patient's son-in-law last night it was agreed that patient will go home today as patient is on hospice care and further treatment and care will be taken by hospice care. This morning patient's other relatives presented with a different view. They claim the patient is all alone home in severe pain and needs a care in a long- term facility. They agreed to discontinue hospice care and apply for long-term care. Will discuss with the discharge planning to start the process for long-term care and currently continue supportive care. Objective - Vital Signs/Intake and Output Vital Signs (last 24 hours): Temp Pulse Resp BP Pulse Ox 98.8 F 84 20 126/73 95 03/06/18 08:15 03/06/18 08:15 03/06/18 08:15 03/06/18 08:15 03/06/18 08:16 Intake and Output: 03/06/18 03/06/18 11:59 23:59 Intake Total 200 Balance 200 - Medications Medications: Current Medications Midodrine (Proamatine) 10 mg PO TID [facility] Last Admin: 03/06/18 09:47 Dose: 10 mg Octreotide Acetate (Sandostatin) 200 mcg SC Q8 [facility] Last Admin: 03/06/18 06:29 Dose: 200 mcg Oxycodone/Acetaminophen (Percocet 5/325 Mg Tab) 1 tab PO Q6H PRN PRN Reason: Pain, moderate (4-7) Stop: 03/06/18 20:12 Last Admin: 03/06/18 12:09 Dose: 1 tab - Labs Labs: 03/06/18 07:55 03/06/18 07:55 Assessment and Plan (1) Liver cancer, primary, with metastasis from liver to other site Status: Chronic (2) Renal failure (ARF), acute on chronic Status: Acute (3) Hyperkalemia Status: Acute (4) Scrotal edema Status: Acute
--- NOTE | 2018-03-06 14:06 | CP.PCM.PN ---
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 He is not a candidate for renal replacement therapy as he is terminally ill. d/w POA as well and he agreed. pt has living will whereby he expressed that wanted to be kept comfortable. tried IV albumin, octreotide and midodrine but renal fxn unchanged hence will stop them palliative care follow up appreciated d/c further lab monitoring Further work up/management as per primary team Thanks for allowing me to participate in care of your patient. Please call if any Qs. had d/w team Dr Lloyd Valadez Office: [phone] Chief Complaint; scrotal swelling Reason for consult: Acute Kidney Injury HPI: Pt is a 67 M with hx of metastatic liver CA, on hospice, ascites presented with complaints of scrotal swelling. renal consult for DOMO. pt reports decreased appetite at home and feels recently 2 bottle for fluid were removed from his abdomen which made him worse. Denies OTC/herbal meds or NSAIDs No recent iodinated contrast exposure. Noted obvious episodes of low BP. ROS: pt unable Physical Examination: General Appearance: in no acute respiratory distress, cachexic, ill appearing Vitals reviewed and noted as below Neck; supple no lymphadenopathy, no thyromegaly or bruit Lungs: Normal respiratory rate/effort. Breath sounds bilateral equal and clear anteriorly Heart: Normal rate. s1s2 normal. No rub or gallop. Extremities: no edema. No varicose veins Neurological: Patient is sleeping, received pain med Skin: Warm and dry. Normal turgor. No rash. Palpitation: Normal elasticity for age Abdomen: Abdomen is soft. Bowel sounds +. There is no abdominal tenderness, no guarding/rigidity no organomegaly. grossly distended with ascites. RLQ catheter + Psych: deferred MSK: no joint tenderness or swelling. Digits and nails normal, no deformity : kidney or bladder not palpable but limited exam Labs/imaging reviewed. Past medical history, past surgical history, family history, social history, allergy reviewed and noted as below Family hx: no hx of CKD. Rest non-contributory Objective - Vital Signs/Intake and Output Vital Signs (last 24 hours): Temp Pulse Resp BP Pulse Ox 98.8 F 84 20 126/73 95 03/06/18 08:15 03/06/18 08:15 03/06/18 08:15 03/06/18 08:15 03/06/18 08:16 Intake and Output: 03/06/18 03/06/18 06:59 18:59 Intake Total 100 200 Balance 100 200 - Medications Medications: Current Medications Oxycodone/Acetaminophen (Percocet 5/325 Mg Tab) 1 tab PO Q6H PRN PRN Reason: Pain, moderate (4-7) Stop: 03/06/18 20:12 Last Admin: 03/06/18 12:09 Dose: 1 tab - Labs Labs: 03/06/18 07:55 03/06/18 07:55
--- NOTE | 2018-03-06 16:54 | CP.PCM.PCO ---
Physician Communication Note - Physician Communication Note Physician Communication Note: Patient has a proxy directive in chart with code status
--- NOTE | 2018-03-07 14:39 | CP.PCM.PN ---
Subjective - Date & Time of Evaluation Date of Evaluation: 03/07/18 Time of Evaluation: 14:38 - Subjective Subjective: PT. IS DNR ON HOSPICE CARE CLINICALLY DOING POORLY D/W FAMILY ONLY COMFORT CARE Objective - Vital Signs/Intake and Output Vital Signs (last 24 hours): Temp Pulse Resp BP Pulse Ox 97.6 F 98 H 20 135/71 95 03/07/18 09:00 03/07/18 09:00 03/07/18 09:00 03/07/18 09:00 03/07/18 09:00 Intake and Output: 03/07/18 03/07/18 11:59 23:59 Intake Total 0 Output Total 0 Balance 0 - Medications Medications: Current Medications Morphine Sulfate (Morphine) 0.5 mg IVP Q4 PRN PRN Reason: Pain, severe (8-10) Last Admin: 03/07/18 09:35 Dose: 0.5 mg - Labs Labs: 03/06/18 07:55 03/06/18 07:55 Assessment and Plan (1) Liver cancer, primary, with metastasis from liver to other site Status: Chronic (2) Renal failure (ARF), acute on chronic Status: Acute (3) Hyperkalemia Status: Acute (4) Scrotal edema Status: Acute
--- NOTE | 2018-03-08 16:06 | CP.PCM.PN ---
Subjective - Date & Time of Evaluation Date of Evaluation: 03/08/18 Time of Evaluation: 16:06 - Subjective Subjective: PT. IS DNR ON HOSPICE CARE CLINICALLY DOING POORLY D/W FAMILY ONLY COMFORT CARE Objective - Vital Signs/Intake and Output Vital Signs (last 24 hours): Temp Pulse Resp BP Pulse Ox 97.7 F 85 19 120/70 97 03/08/18 14:55 03/08/18 14:55 03/08/18 14:55 03/08/18 14:55 03/08/18 14:55 Intake and Output: 03/08/18 03/08/18 11:59 23:59 Intake Total 0 Balance 0 - Medications Medications: Current Medications Morphine Sulfate (Morphine) 0.5 mg IVP Q4 PRN PRN Reason: Pain, severe (8-10) Last Admin: 03/08/18 15:04 Dose: 0.5 mg - Labs Labs: 03/06/18 07:55 03/06/18 07:55 Assessment and Plan (1) Liver cancer, primary, with metastasis from liver to other site Status: Chronic (2) Renal failure (ARF), acute on chronic Status: Acute (3) Hyperkalemia Status: Acute (4) Scrotal edema Status: Acute
[2018-03-08 23:31] VITALS: RESP 20
[2018-03-09 08:46] VITALS: BP 135/78; PULSE 94; TEMP 98.5; O2SAT 97
--- NOTE | 2018-03-09 14:15 | CP.PCM.PN ---
Subjective - Date & Time of Evaluation Date of Evaluation: 03/09/18 Time of Evaluation: 14:14 - Subjective Subjective: patient pulled out th catheter from the abdomen for drainage of ascites Will observe. PT. IS DNR ON HOSPICE CARE CLINICALLY DOING POORLY D/W FAMILY ONLY COMFORT CARE Objective - Vital Signs/Intake and Output Vital Signs (last 24 hours): Temp Pulse Resp BP Pulse Ox 98.5 F 94 H 20 135/78 97 03/09/18 08:15 03/09/18 08:15 03/09/18 08:15 03/09/18 08:15 03/09/18 08:15 Intake and Output: 03/09/18 03/09/18 11:59 23:59 Intake Total 0 Output Total 100 Balance -100 - Medications Medications: Current Medications Morphine Sulfate (Morphine) 1 mg IVP Q4H PRN PRN Reason: Pain, severe (8-10) Last Admin: 03/09/18 12:13 Dose: 1 mg - Labs Labs: 03/06/18 07:55 03/06/18 07:55 Assessment and Plan (1) Liver cancer, primary, with metastasis from liver to other site Status: Chronic (2) Renal failure (ARF), acute on chronic Status: Acute (3) Hyperkalemia Status: Acute (4) Scrotal edema Status: Acute
--- NOTE | 2018-03-15 15:29 | CP.PCM.DIS ---
Provider - Provider Date of Admission: 03/06/18 11:00 Attending physician: Jah Nunn MD Consults: 03/03/18 19:16 Nephrology Consult Routine Comment: Consulting Provider: Lloyd Valadez Consulting Physician: Lloyd Valadez Reason for Consult: RENAL FAILURE/HYPER K 03/03/18 23:33 Nursing Referral for Palliative Care Routine Comment: Physician Instructions: Reason For Exam: pt has durable [employer] care 03/05/18 14:59 Physician Consult Routine Comment: Consulting Provider: Velma Knox Consulting Physician: Velma Knox Reason for Consult: pt hospice, severe DOMO. ? 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 Reason for Referral: Non Destructive Testing Inspector Raheel Time Spent in preparation of Discharge (in minutes): 30 Diagnosis - Discharge Diagnosis (1) Liver cancer, primary, with metastasis from liver to other site Status: Chronic (2) Renal failure (ARF), acute on chronic Status: Acute (3) Hyperkalemia Status: Acute (4) Scrotal edema Status: Acute Hospital Course - Lab Results Lab Results: Micro Results 03/03/18 18:39 Urine Urine Culture - Final No Growth (<1,000 CFU/ML) Most Recent Lab Values WBC 6.1 K/uL (4.8-10.8) 03/06/18 07:55 RBC 3.22 Mil/uL (4.40-5.90) L 03/06/18 07:55 Hgb 10.9 g/dL (12.0-18.0) L 03/06/18 07:55 Hct 31.9 % (35.0-51.0) L 03/06/18 07:55 MCV 98.9 fL (80.0-94.0) H 03/06/18 07:55 MCH 33.7 pg (27.0-31.0) H 03/06/18 07:55 MCHC 34.1 g/dL (33.0-37.0) 03/06/18 07:55 RDW 16.7 % (11.5-14.5) H 03/06/18 07:55 Plt Count 70 K/uL (130-400) L 03/06/18 07:55 MPV 9.0 fL (7.2-11.7) 03/06/18 07:55 Neut % (Auto) 71.5 % (50.0-75.0) 03/06/18 07:55 Lymph % (Auto) 7.8 % (20.0-40.0) L 03/06/18 07:55 [place] % (Auto) 15.9 % (0.0-10.0) H 03/06/18 07:55 Eos % (Auto) 4.2 % (0.0-4.0) H 03/06/18 07:55 Baso % (Auto) 0.6 % (0.0-2.0) 03/06/18 07:55 Neut # (Auto) 4.4 K/uL (1.8-7.0) 03/06/18 07:55 Lymph # (Auto) 0.5 K/uL (1.0-4.3) L 03/06/18 07:55 [place] # (Auto) 1.0 K/uL (0.0-0.8) H 03/06/18 07:55 Eos # (Auto) 0.3 K/uL (0.0-0.7) 03/06/18 07:55 Baso # (Auto) 0.0 K/uL (0.0-0.2) 03/06/18 07:55 Neutrophils % (Manual) 90 % (50-75) H 03/06/18 07:55 Lymphocytes % (Manual) 3 % (20-40) L 03/06/18 07:55 Monocytes % (Manual) 7 % (0-10) 03/06/18 07:55 Eosinophils % (Manual) 2 % (0-4) 03/05/18 09:05 Platelet Estimate Decreased (NORMAL) L 03/06/18 07:55 Polychromasia Slight 03/04/18 08:13 Anisocytosis (manual) Slight 03/06/18 07:55 Macrocytosis (manual) Slight 03/03/18 14:37 [place] Cells Slight 03/05/18 09:05 Sodium 131 mmol/L (132-148) L 03/06/18 07:55 Potassium 4.4 mmol/L (3.6-5.2) 03/06/18 07:55 Chloride 100 mmol/L (98-107) 03/06/18 07:55 Carbon Dioxide 14 mmol/L (22-30) L 03/06/18 07:55 Anion Gap 22 (10-20) H 03/06/18 07:55 BUN 126 mg/dL (9-20) H* 03/06/18 07:55 Creatinine 4.3 mg/dL (0.8-1.5) H 03/06/18 07:55 Est GFR ( Amer) 17 03/06/18 07:55 Est GFR (Non-Af Amer) 14 03/06/18 07:55 Random Glucose 106 mg/dL (75-110) 03/06/18 07:55 Calcium 8.6 mg/dl (8.6-10.4) 03/06/18 07:55 Phosphorus 6.8 mg/dL (2.5-4.5) H 03/05/18 09:05 Magnesium 2.6 mg/dL (1.6-2.3) H 03/06/18 07:55 Total Bilirubin 3.7 mg/dL (0.2-1.3) H 03/06/18 07:55 Direct Bilirubin 2.8 mg/dL (0.0-0.4) H 03/04/18 06:41 AST 115 U/L (17-59) H D 03/06/18 07:55 ALT 134 U/L (21-72) H D 03/06/18 07:55 Alkaline Phosphatase 137 U/L (38-126) H D 03/06/18 07:55 Total Protein 5.8 g/dL (6.3-8.3) L 03/06/18 07:55 Albumin 3.1 g/dL (3.5-5.0) L D 03/06/18 07:55 Globulin 2.6 gm/dL (2.2-3.9) 03/06/18 07:55 Albumin/Globulin Ratio 1.2 (1.0-2.1) 03/06/18 07:55 Urine Color Yellow (YELLOW) 03/03/18 18:39 Urine Clarity Clear (Clear) 03/03/18 18:39 Urine pH 5.0 (5.0-8.0) 03/03/18 18:39 Ur Specific [place] 1.013 (1.003-1.030) 12/04/18 18:39 Urine Protein Negative mg/dL (NEGATIVE) 03/03/18 18:39 Urine Glucose (UA) Normal mg/dL (Normal) 03/03/18 18:39 Urine Ketones Negative mg/dL (NEGATIVE) 03/03/18 18:39 Urine Blood Negative (NEGATIVE) 12 18:39 Urine Nitrate Negative (NEGATIVE) 03/03/18 18:39 Urine Bilirubin Negative (NEGATIVE) 03/03/18 18:39 Urine Urobilinogen Normal mg/dL (0.2-1.0) 03/03/18 18:39 Ur Leukocyte Esterase Neg [place]/uL (Negative) 03/03/18 18:39 Urine WBC (Auto) < 1 /hpf (0-5) 03/03/18 18:39 Urine RBC (Auto) < 1 /hpf (0-3) 03/03/18 18:39 Urine Bacteria Rare (<OCC) 03/03/18 18:39 Ur Random Creatinine 124.0 mg/dL 03/05/18 03:17 Ur Random Sodium < 5 mmol/L 03/05/18 03:17 - Hospital Course Hospital Course: 67 years or male with metastatic liver cancer admitted with increasing scrotal swelling pain discomfort. Patient is under hospice care and patient was informed by the hospice care nurse that they would not be able to treat his scrotal problem. Patient has severe pain unable to sit walk or do any regular activities and has come to the hospital for focus treatment. His blood work revealed that patient is in renal failure with hyperkalemia. Patient has a history of hypertension. Patient has a catheter in the abdomen to drain ascites fluid. Patient was admitted on a regular floor. Nephrology consult was obtained and patient was treated with supportive care no intervention. Patient initially improved with IV fluids and Lasix with decrease in size of the scrotal swelling. Ascites fluid was drained on her alternate day. Pain management was done with morphine. After discussing with the family patient was transferred to in-house hospice care. Final diagnosis metastatic liver disease Acute on chronic renal failure. Discharge Exam - Head Exam Head Exam: ATRAUMATIC, NORMAL INSPECTION, NORMOCEPHALIC Discharge Plan - Follow Up Plan Condition: FAIR Disposition: HOSPICE - MEDICAL FACILITY
== END 2018-03-09 18:42 | disposition hospice, inpatient (51) | DRG 682 ==
LOC: C.ER 12:06 → C.9E 17:54 → C.3T 18:06 → OBSVTOIN 03-06 11:00
PROVIDERS: ADMIT Internal Medicine Cardiovascular Disease; ATTEND Internal Medicine Cardiovascular Disease
DX: N17.9 Acute kidney failure, unspecified (principal); K76.7 Hepatorenal syndrome; E87.1 Hypo-osmolality and hyponatremia; E87.2 Acidosis; R18.8 Other ascites; C22.7 Other specified carcinomas of liver; C78.00 Secondary malignant neoplasm of unspecified lung; C79.00 Secondary malignant neoplasm of unspecified kidney and renal pelvis; N50.89 Other specified disorders of the male genital organs; D69.6 Thrombocytopenia, unspecified; E87.5 Hyperkalemia; Z51.5 Encounter for palliative care; Z66 Do not resuscitate; N43.3 Hydrocele, unspecified; I12.9 Hypertensive chronic kidney disease with stage 1 through stage 4 chronic kidney disease, or unspecified chronic kidney disease; N18.9 Chronic kidney disease, unspecified

== ENCOUNTER 2018-03-09 18:38 | Inpatient (IN) | payer OTHER ==
[2018-03-09 19:04] VITALS: BMI 22.6
[2018-03-09] MEDS ORDERED: Morphine Sulfate 250 MG in Dextrose 5% In Water 240 ML IV PRN (19:11)
--- NOTE | 2018-03-10 13:53 | CP.PCM.PN ---
Subjective - Date & Time of Evaluation Date of Evaluation: 03/10/18 Time of Evaluation: 13:52 - Subjective Subjective: Patient admitted to hospice care. Patient history of CA of the liver with metastases. Patient also has ascites recently the catheter has been pulled out by the patient. Patient was also in the renal failure. Initially IV fluid was given with some improvement but currently patient is only on comfort care and pain management. Vital signs are stable physical examination remains the same with ascites. Objective - Vital Signs/Intake and Output Vital Signs (last 24 hours): Temp Pulse Resp BP Pulse Ox 98.1 F 90 96 H 126/78 90 L 03/10/18 07:00 03/10/18 07:00 03/10/18 07:00 03/10/18 07:00 03/10/18 07:00 Intake and Output: 03/10/18 03/10/18 11:59 23:59 Intake Total 64 Output Total 100 Balance -36 - Medications Medications: Current Medications Acetaminophen (Tylenol 650 Mg Supp) 650 mg [place] Q6 PRN PRN Reason: Fever >100.4 F Morphine Sulfate 250 mg/ (Sodium Chloride) 250 mls @ 1 mls/hr IV .Q24H PRN PRN Reason: Pain, severe (8-10) Last Admin: 03/09/18 21:01 Dose: 1 mls/hr Lorazepam (Ativan) 1 mg IM Q6H PRN PRN Reason: Agitation Scopolamine (Transderm-Scop) 1 patch TD Q3D [facility] Last Admin: 03/09/18 21:00 Dose: 1 patch
[2018-03-10 14:17] VITALS: RESP 20; O2SAT 96
[2018-03-11 01:28] VITALS: BP 105/72; PULSE 92; TEMP 97.5
--- NOTE | 2018-03-11 13:35 | CP.PCM.PRO ---
Pronouncement of Note - Clinical Findings Physical Exam: No Response Verbal/Painful Stimuli, Absent Peripheral Puls es{Carotid & Femoral}, Absent Heart & Breath Sounds, No Pupillary Light Reflex, No Corneal Reflex, Pupils Fixed & Dilated, Absence of Vital Signs - Pronouncement Time Time of Pronouncement of : 13:27 - Notifications Pronouncement Notifications: Family Notified, Atending Notified Knife Finisher Notified: No - Autopsy Autopsy Requested: No - [place] [id number]
--- NOTE | 2018-03-11 14:07 | CP.PCM.DIS ---
Provider - Provider Date of Admission: 03/09/18 18:38 Attending physician: Jah Nunn MD Time Spent in preparation of Discharge (in minutes): 35 Hospital Course - Hospital Course Hospital Course: 67 years old male with a history of CA of the liver with metastasis on hospice care was admitted with increasing scrotal pain. Patient has also has ascites and had a catheter for drainage. Patient was given Lasix with improvement of scrotal swelling. After discussing with the family members patient was again transferred back to hospice care. Patient also had a renal failure nephrology consult was obtained and patient was treated with supportive care. The family wanted only needs comfort care patient was given comfort care to the day. Patient was DNR and DNI and patient on March 11, 2018. Discharge Plan - Follow Up Plan Condition: GOOD Disposition: HOME/ ROUTINE
== END 2018-03-11 17:23 | DRG 436 ==
LOC: C.3T 18:38 → UNDODISIN 03-10 16:58
PROVIDERS: ADMIT Internal Medicine Cardiovascular Disease; ATTEND Internal Medicine Cardiovascular Disease
DX: C22.7 Other specified carcinomas of liver (principal); C79.9 Secondary malignant neoplasm of unspecified site; R18.8 Other ascites; N50.89 Other specified disorders of the male genital organs; N19 Unspecified kidney failure; Z51.5 Encounter for palliative care; Z66 Do not resuscitate